=== PATIENT | female | born 2000 | race Caucasian/White ===

== ENCOUNTER 2022-10-15 20:21 | Emergency (ER) | payer OTHER, SELFPAY ==
[2022-10-15 20:51] VITALS: BP 117/69; PULSE 98; RESP 14; TEMP 36.6; O2SAT 98
--- NOTE | 2022-10-15 21:15 | XRR_ITS ---
PROCEDURE INFORMATION: Exam: XR Right Foot Exam date and time: 10/15/2022 9:57 PM Age: 21 years old Clinical indication: Injury or trauma; Fall; Blunt trauma; Foot; Right; Additional info: 4th and 5th toe injury TECHNIQUE: Imaging protocol: Radiologic exam of the right foot. Views: 3 or more views. COMPARISON: No relevant prior studies available. FINDINGS: Bones/joints: Normal. Soft tissues: Normal. XR/XR foot RT min 3V* [id number] IMPRESSION: No acute findings.
--- NOTE | 2022-10-15 21:49 | W.ED.EXTPRO ---
HPI - Extremity Problem General: Chief complaint: Extremity Injury, Lower Stated complaint: right foot pain Time Seen by Provider: 10/15/22 21:49 History of Present Illness: Patient is a 21-year-old female comes to the ED with right foot pain. Injury occurred earlier today. Patient was playing around with sibling and injured her right fifth toe. She now has some pain, swelling and bruising around the base of fifth toe of right foot. Pain worsens if she puts any weight on foot. Patient is new to the area and does not have a primary care provider. Associated symptoms: Deny chest pain, fever(s) or rash Review of Systems Const: Denies: fever(s), chills or fatigue Eyes: Denies: change in vision or eye discomfort ENMT: Denies: throat pain, odynophagia, nasal discharge or nasal congestion Card: Denies: chest pain, palpitations, edema, swelling of feet/ankles, dyspnea on exertion or orthopnea Resp: Denies: dyspnea, productive cough or non-productive cough GI: Denies: abdominal pain, nausea, vomiting, diarrhea, constipation or hematochezia : Denies: flank pain, dysuria or hematuria Musc: Reports: extremity pain (Right foot-fifth toe); Denies: neck pain, back pain or extremity swelling Skin/Breast: Denies: rash or new lesions Neuro: Denies: headache(s), numbness in extremities or weakness in extremities PFS ED PFSH: Medical History No pertinent family history Surgical History No pertinent past surgical history Physical Exam Const: COMMON NORMALS: patient oriented x3 HENMT: COMMON NORMALS: normocephalic HEAD & SCALP: normocephalic MOUTH: Normal oral and palatal mucosa present THROAT: posterior oropharynx normal and uvula midline Neck/C-Spine: COMMON NORMALS: supple GENERAL: Yes normal visual inspection Resp: COMMON NORMALS: normal respiratory effort, No retractions, No use of accessory muscles and clear to auscultation bilaterally AUSCULTATION: clear to auscultation bilaterally Cardio: COMMON NORMALS: regular rate, regular rhythm, S1 normal heart sound present, S2 normal heart sound present, No gallops present (Cardio), No clicks present (Cardio), No murmurs present (Cardio) and Peripheral pulses 2+ throughout RATE: regular rate RHYTHM: regular rhythm HEART SOUNDS: S1 normal heart sound present and S2 normal heart sound present PERIPHERAL PULSES: Peripheral pulses 2+ throughout GI: COMMON NORMALS: Normal to inspection, nondistended, normoactive bowel sounds present, Soft to palpation, non-tender and no masses PALPATION: Yes Soft to palpation : COMMON NORMALS: Yes no CVA tenderness BLADDER/KIDNEY EXAM: Yes no CVA tenderness Back/Pelvis: COMMON NORMALS: no CVA tenderness Extremity: NARRATIVE EXTREMITY EXAM: Right foot?no visible deformity seen. At base of fifth toe patient has ecchymosis, swelling and tenderness noted. Neurovascular intact distally. Neuro: COMMON NORMALS: patient oriented x3 GAIT: Yes Normal gait present Skin: GENERAL SKIN EXAM: dry skin Course Vital Signs: Vital signs: Vital Signs Temperature 97.9 F 10/15/22 20:51 Pulse Rate 98 10/15/22 20:51 Respiratory Rate 14 10/15/22 20:51 Blood Pressure 117/69 10/15/22 20:51 Pulse Oximetry 98 10/15/22 20:51 Oxygen Delivery Me thod 10/15/22 20:51 MDM - Extremity (Nontraumatic) Medical Decision Making Patient is a 21-year-old female comes to the ED with right foot pain. Injury occurred earlier today. Patient was playing around with sibling and injured her right fifth toe. She now has some pain, swelling and bruising around the base of fifth toe of right foot. Pain worsens if she puts any weight on foot. Patient is new to the area and does not have a primary care provider. Right foot?no visible deformity seen. At base of fifth toe patient has ecchymosis, swelling and tenderness noted. Neurovascular intact distally. X-ray of right foot shows a nondisplaced fracture at the base of proximal phalanx of fifth toe. Patient was placed in a stiff soled shoe and given crutches here in the ED. I placed order with case management for patient to be referred to a primary care physician since she is new in [facility]. Since she was discharged home with a prescription for ibuprofen and her milligrams to help with pain. Return ED precautions given. Patient understood and agreed with plan. Lab Data Radiology Impressions Foot X-Ray 10/15/22 21:15 IMPRESSION: No acute findings. Discharge Plan Discharge Patient Disposition: Home Clinical Impression: Fracture, phalanx, foot Qualifiers: Encounter type: initial encounter Toe: lesser toe Fracture type: closed Phalanx: proximal Fracture alignment: nondisplaced Laterality: right Qualified Code(s): S92.514A - Nondisplaced fracture of proximal phalanx of right lesser toe(s), initial encounter for closed fracture Condition: Stable Prescriptions: New ibuprofen 800 mg tablet 800 mg PO Q8H PRN (Reason: pain) Qty: 20 0RF Discharge Orders: Discharge ED (Routine); Ordered 10/15/22 Ordered By: Ravi Zaidi Discharge Diet: Regular Discharge Activity: Limit activity as instructed and Use walker/crutches as instructed Patient Instructions: Toe Fracture (ED) Activity Restrictions/Additional Instructions: Follow-up with medical provider as directed in the next 5 to 7 days for reevaluation. Use crutches over the next couple days to help with ambulation and limit weightbearing. Wear stiff sole shoe with ambulation and over the next week you should be able to weight-bear with a stiff sole shoe. Rest, ice and elevate right foot. Take medications as prescribed. Return to the ER or your medical provider if condition worsens. Please read and understand discharge instructions. Thank you for choosing [facility] for your healthcare needs today. Please realize this is an emergency room and that we are providing you with a medical screening exam and this may not be complete and all inclusive of all the testing and or work up that you may need to determine your ailment or severity of your illness. It is very important that you follow up as instructed or that you return to the Emergency Department should you have concerns or if your condition changes or worsens in any way. Stand Alone Forms: Work/School Release Coding Level of Care Code ED [employer] for [employer]el
--- NOTE | 2022-10-16 12:27 | DCPLANNER ---
Addendum entered by Juliet Alves 10/25/22 08:06: Patient had an appointment to establish care at [facility] with Dr. Wolf - patient did attend appointment Original Note: tax manager cpa had message to speak with patient about getting established with a primary care physician. tax manager cpa spoke with patient, who stated that she would like help in getting established with a primary care physician. tax manager cpa called [facility], spoke with Martha, gave clinic patients information. A follow up appointment was scheduled for patient for Monday, October 17, 2022 at [address] Ferrara. tax manager cpa informed patient of the scheduled appointment.
== END 2022-10-15 23:00 | disposition home or self-care (01) ==
PROVIDERS: Emergency Provider Physician Assistant
DX: S92.514A Nondisplaced fracture of proximal phalanx of right lesser toe(s), initial encounter for closed fracture (principal); X58.XXXA Exposure to other specified factors, initial encounter; Y93.83 Activity, rough housing and horseplay
CPT/HCPCS: 73630; 99283; E0114